=== PATIENT | female | born 1965 | race Caucasian/White ===

== ENCOUNTER 2016-07-06 07:47 | Day surgery (SDC) | payer OTHER ==
[2016-07-06 08:09] VITALS: BMI 31.8
[2016-07-06] MEDS ORDERED: Propofol 10 mg/ml Inj (20 ML) ONE (09:22)
[2016-07-06] MEDS ORDERED: Lidocaine Hydrochloride 5 ML INJ ONE (09:23)
--- NOTE | 2016-07-06 09:24 | CP.SDSHP ---
Same Day Surgery H & P - History Proposed Procedure: EGD Pre-Op Diagnosis: SEE NOTES - Previous Medical/Surgical History Pulmonary: Asthma Misc: Other Pain: 4.Moderate Pain - Allergies Allergies: Allergies APPLES Allergy (Intermediate, Uncoded 07/06/16 08:14) ITCHING peanuts Allergy (Intermediate, Uncoded 07/06/16 08:14) RASH - Physical Exam General Appearance: N Vital Signs: Vital Signs 07/06/16 08:45 Temperature 97.3 F L Pulse Rate 75 Respiratory 19 Rate Blood Pressure 138/69 O2 Sat by Pulse 100 Oximetry Mental Status: Alert & Oriented x3 Neuro: WNL Heart: WNL Lungs: Other GI: WNL - {Optional Preform as Required} Breast: WNL Abdomen: Other Rectal: Other Integument: WNL : WNL Ortho: Other ENT: WNL - Impression Pt. Evaluated Today:Candidate for Anesthesia & Procedure: Yes - Date & Time Time: 09:24 Short Stay Discharge - Short Stay Discharge Admitting Diagnosis/Reason for Visit: FUNCTIONAL DYSPEPSIA Disposition: HOME/ ROUTINE
[2016-07-06] MEDS ORDERED: Lactated Ringer's 500 ML IV ONE (09:31)
[2016-07-06] MEDS ORDERED: Pantoprazole 40 mg EC Tab PO ONE (09:38)
[2016-07-06 09:58] VITALS: TEMP 97.1
[2016-07-06 11:10] VITALS: BP 148/70; PULSE 71; RESP 17; O2SAT 93
== END 2016-07-06 10:40 | disposition home or self-care (01) ==
LOC: C.ENDO 07:47
PROVIDERS: ATTEND Specialist
DX: K29.70 Gastritis, unspecified, without bleeding (principal); K30 Functional dyspepsia; K29.80 Duodenitis without bleeding; K44.9 Diaphragmatic hernia without obstruction or gangrene; B96.81 Helicobacter pylori [H. pylori] as the cause of diseases classified elsewhere
CPT/HCPCS: 43239; 84703; 88305; 88342; J2704; J7120

== ENCOUNTER 2016-07-08 07:19 | Day surgery (SDC) | payer OTHER ==
--- NOTE | 2016-07-08 09:22 | CP.SDSHP ---
Same Day Surgery H & P - History Proposed Procedure: COLONSCOPY Pre-Op Diagnosis: SEE NOTES - Previous Medical/Surgical History Cardiac: Hypertension Pulmonary: Asthma Misc: Other Pain: 2.Mild Pain - Allergies Allergies: Allergies APPLES Allergy (Intermediate, Uncoded 07/06/16 08:14) ITCHING peanuts Allergy (Intermediate, Uncoded 07/06/16 08:14) RASH - Physical Exam General Appearance: N Vital Signs: Vital Signs 07/08/16 08:13 Temperature 97.1 F L Pulse Rate 63 Respiratory 18 Rate Blood Pressure 129/67 O2 Sat by Pulse 99 Oximetry Mental Status: Alert & Oriented x3 Neuro: WNL Heart: Other Lungs: WNL GI: WNL - {Optional Preform as Required} Breast: WNL Abdomen: Other Rectal: WNL Integument: WNL : WNL Ortho: WNL ENT: WNL - Impression Pt. Evaluated Today:Candidate for Anesthesia & Procedure: Yes - Date & Time Time: 09:22 Short Stay Discharge - Short Stay Discharge Admitting Diagnosis/Reason for Visit: SCREENING FOR MALIGNANT NEOPLASM OF COLON Disposition: HOME/ ROUTINE
[2016-07-08] MEDS ORDERED: Belladonna-Phenobarbital PO STA (09:23)
[2016-07-08] MEDS ORDERED: Propofol 10 mg/ml Inj (20 ML) ONE (09:25)
[2016-07-08 09:52] VITALS: TEMP 97
[2016-07-08 10:30] VITALS: O2SAT 100
[2016-07-08 14:09] VITALS: BP 128/70; PULSE 65; RESP 18
== END 2016-07-08 13:00 | disposition home or self-care (01) ==
LOC: C.ENDO 07:19
PROVIDERS: ATTEND Specialist
DX: Z12.11 Encounter for screening for malignant neoplasm of colon (principal); K57.30 Diverticulosis of large intestine without perforation or abscess without bleeding; K63.89 Other specified diseases of intestine; K64.8 Other hemorrhoids
CPT/HCPCS: 45380; 84703; 88305; J2704